=== PATIENT | female | born 1995 | race Caucasian/White ===

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

== ENCOUNTER 2017-09-13 16:37 | Emergency (ER) | payer MEDICAID ==
[~2017-09-13] VITALS: Ht 167.6 cm; Wt 84.0 kg
[~2017-09-13 16:37] MED LIST changes: +PREN-132 PO; -PRENATAL ONE DA1 TAB PO
[2017-09-13 16:47] VITALS: BP 123/87
--- NOTE | 2017-09-13 16:51 | NUR ---
Pt taken to bed 12.
--- NOTE | 2017-09-13 17:03 | NUR ---
WOKE UP THIS MORNING WITH LT FACIAL PAIN 10/10, REPORTS REDNESS AND BURNING SENSATION. MILD SWELLING AND ERYTHEMA NOTED TO LEFT CHEEK BOBE. STATES " I THINK SOMETHING BIT ME" TETANUS LESS THAN 5 YEARS. RESP EVEN AND UNLABORED, IN NAD. AT BEDSIDE. WAITYING FOR ER MD FLEMING. HX; DENIES RX; DENIES
--- NOTE | 2017-09-13 17:16 | NUR ---
DR SANDERS AT BEDSIDE FOR EXAM.
--- NOTE | 2017-09-13 17:38 | NUR ---
Patient discharged with v/s stable. Written and verbal after care instructions given and explained. Patient alert, oriented and verbalized understanding of instructions. Ambulatory with steady gait. All questions addressed prior to discharge. ID band removed. Patient advised to follow up with PMD. Rx of NAPROXYN, KEFLEX given. Patient educated on indication of medication including possible reaction and side effects. Opportunity to ask questions provided and answered.
== END 2017-09-13 17:38 | disposition home or self-care (01) ==
LOC: MED 16:37
DX: L03.313 Cellulitis of chest wall (principal); Z79.899 Other long term (current) drug therapy
CPT/HCPCS: 99283

== ENCOUNTER 2019-04-15 12:37 | Emergency (ER) | payer MEDICAID ==
[~2019-04-15] VITALS: Ht 163.8 cm; Wt 82.6 kg
[2019-04-15 12:46] VITALS: BP 122/90
--- NOTE | 2019-04-15 12:49 | NUR ---
PT TO BED 8 WITH STEADY GAIT
--- NOTE | 2019-04-15 12:52 | NUR ---
R FACIAL PAIN X 3 DAYS. DENIES INJURY OR TRUAMA. PAIN 10/10. SWELLING UNDER PTS R EYE, NO BRUISING. NO FACIAL DROOP NOTED. FACIAL SYMMETRY. PATIENT ADDS DIFFICULTY WITH VISION DUE TO SWELLING. VSS. AA0X4. BED IS DOWN, LOCKED, BED RAIL X 1, ERMD TO SEE PT. PMH- DENIES RX-DENIES
[2019-04-15] MEDS ORDERED: AMPICILLIN/SULBACTAM 3 GM in NACL 0.9% 100 ML IV ONE (13:05)
[2019-04-15] MEDS ORDERED: KETOROLAC 30 MG/ML VIAL IVP ONE (13:05)
[2019-04-15] MEDS ORDERED: AMPICILLIN/SULBACTAM 3 GM VIAL ONE (13:31)
--- NOTE | 2019-04-15 14:08 | NUR ---
PT RESTING IN BED. FAMILY MEMBER AT BEDSIDE.
[2019-04-15 14:42] VITALS: BP 125/78
--- NOTE | 2019-04-15 14:42 | NUR ---
Patient discharged with v/s stable. Written and verbal after care instructions given and explained. Patient alert, oriented and verbalized understanding of instructions. Ambulatory with steady gait. All questions addressed prior to discharge. ID band removed. Patient advised to follow up with PMD. Rx of KEFLEX AND NAPROSYN given. Patient educated on indication of medication including possible reaction and side effects. Opportunity to ask questions provided and answered.
--- NOTE | 2019-04-15 14:45 | NUR ---
PT DISCARGED BY DR ESPINAL
== END 2019-04-15 14:45 | disposition home or self-care (01) ==
LOC: MED 12:37
DX: L03.211 Cellulitis of face (principal); Z79.899 Other long term (current) drug therapy
CPT/HCPCS: 96365; 96375; 99283; J0295; J1885

== ENCOUNTER 2021-01-26 12:33 | Emergency (ER) | payer MEDICAID ==
[~2021-01-26] VITALS: Ht 165.1 cm; Wt 86.2 kg
[2021-01-26 12:38] VITALS: BP 142/83
--- NOTE | 2021-01-26 12:54 | NUR ---
25 Y/O FEMALE C/O RIGHT BREAST PAIN X 1 MONTH. PT STATES 10/10 STABBING PAIN WITH RADIATING TO THE LEFT BREAST. HAS A BIOPSY TO BE DONE IN 2 MONTHS. REFERRED FROM CLINIC FOR HIGH WBCs. MEDHX: R BREAST MASS nka
--- NOTE | 2021-01-26 13:03 | NUR ---
DR COLUNGA AT BEDSIDE EXAMINING PT
--- NOTE | 2021-01-26 14:00 | NUR ---
LAB AT BEDSIDE
[2021-01-26 14:22] LABS: BASOPHILS # (AUTO) 0.1 K/uL (0.00-0.22); BASOPHILS % (AUTO) 0.4 % (0.0-2.0); EOSINOPHILS # (AUTO) 0.1 K/uL (0-0.4); EOSINOPHILS % (AUTO) 0.5 % (0.0-4.0); HEMATOCRIT 38.6 % (36-48); HEMOGLOBIN 12.2 g/dL (12.0-16.0); LYMPHOCYTES # (AUTO) 2.8 K/uL (2.5-16.5); MEAN CORPUSCULAR HEMOGLOBIN 25 pg (27-31); MEAN CORPUSCULAR HGB CONC 32 g/dL (33-37); MEAN CORPUSCULAR VOLUME 80.2 fL (80-94); MONOCYTES # (AUTO) 0.8 K/uL (0.8-1.0); NEUTROPHILS # (AUTO) 9.7 K/uL (1.8-7.7); NEUTROPHILS % (AUTO) 72.1 % (42.2-75.2); PLATELET COUNT (AUTO) 400 K/uL (140-450); RED BLOOD CELL COUNT(AUTO) 4.81 MIL/uL (4.20-5.40); RED CELL DISTRIBUTION WIDTH 15.9 % (11.6-13.7); WHITE BLOOD COUNT (AUTO) 13.4 K/uL (4.8-10.8)
[2021-01-26 14:35] LABS: ALBUMIN 3.7 g/dL (3.4-5.0); ANION GAP 13.1 (8-16); CARBON DIOXIDE 26.8 mmol/L (21-32); CREATININE 0.7 mg/dL (0.6-1.3); POTASSIUM 3.9 mmol/L (3.5-5.1); TOTAL BILIRUBIN 0.4 mg/dL (0.0-1.0)
[2021-01-26 14:38] LABS: BILIRUBIN,URINE NEGATIVE (NEGATIVE); BLOOD, URINE 1+ (NEGATIVE); COLOR,URINE YELLOW (YELLOW); LEUKOCYTE ESTERASE ,URINE 1+ (NEGATIVE); NITRITE, URINE NEGATIVE (NEGATIVE); PH,URINE 5.5 (5.0-9.0); UGLUCOSE NEGATIVE (NEGATIVE)
[2021-01-26 14:52] LABS: APPEARANCE,URINE HAZY (CLEAR)
[2021-01-26 14:55] LABS: RBC,URINE 0-5 /HPF (0-5); WBC,URINE 0-5 /HPF (0-5)
[2021-01-26] MEDS ORDERED: CEPH-588 PO (15:20)
[2021-01-26 15:40] VITALS: BP 142/83
[2021-01-27 09:07] LABS: ANTI DOUBLE STRANDED DNA AB 1 IU/mL (0-9); ANTI-NUCLEAR ANTIBODY,DIRECT Negative (Negative)
== END 2021-01-26 15:40 | disposition home or self-care (01) ==
LOC: MED 12:33
DX: N64.9 Disorder of breast, unspecified (principal); Z79.899 Other long term (current) drug therapy
CPT/HCPCS: 36415; 80053; 81001; 81025; 84702; 85025; 85613; 86038; 87086; 99284

== ENCOUNTER 2022-12-24 11:13 | Emergency (ER) | payer MEDICAID ==
[~2022-12-24] VITALS: Ht 165.1 cm; Wt 92.6 kg
[~2022-12-24 11:13] MED LIST changes: +CEPH-588 PO
[2022-12-24 11:25] VITALS: BP 120/73
--- NOTE | 2022-12-24 11:32 | NUR ---
PATIENT AMBULATED TO BED 9
--- NOTE | 2022-12-24 11:53 | NUR ---
ASSUMED PATIENT CARE, NURSING ASSESSMENT COMPLETED.
--- NOTE | 2022-12-24 12:16 | NUR ---
DR NIETO AT BEDSIDE, MSE COMPLETED CHAPERONED BY FEMALE STAFF.
--- NOTE | 2022-12-24 12:25 | NUR ---
Female Geology Professor accompanied female patient for Breast Exam.
[2022-12-24 13:14] LABS: BASOPHILS # (AUTO) 0.1 K/uL (0.00-0.22); BASOPHILS % (AUTO) 0.4 % (0.0-2.0); EOSINOPHILS # (AUTO) 0.2 K/uL (0-0.4); EOSINOPHILS % (AUTO) 1.1 % (0.0-4.0); HEMATOCRIT 35.9 % (36-48); HEMOGLOBIN 11.5 g/dL (12.0-16.0); LYMPHOCYTES # (AUTO) 3.3 K/uL (2.5-16.5); LYMPHOCYTES % (AUTO) 24.5 % (20.5-51.1); MEAN CORPUSCULAR HEMOGLOBIN 25 pg (27-31); MEAN CORPUSCULAR HGB CONC 32 g/dL (33-37); MEAN CORPUSCULAR VOLUME 77.4 fL (80-94); MONOCYTES # (AUTO) 0.9 K/uL (0.8-1.0); MONOCYTES % (AUTO) 6.9 % (1.7-9.3); NEUTROPHILS # (AUTO) 9.2 K/uL (1.8-7.7); NEUTROPHILS % (AUTO) 67.1 % (42.2-75.2); PLATELET COUNT (AUTO) 374 K/uL (140-450); RED BLOOD CELL COUNT(AUTO) 4.63 MIL/uL (4.20-5.40); RED CELL DISTRIBUTION WIDTH 16.5 % (11.6-13.7); WHITE BLOOD COUNT (AUTO) 13.7 K/uL (4.8-10.8)
[2022-12-24 13:24] LABS: ANION GAP 11.3 (8-16); CARBON DIOXIDE 27.9 mmol/L (21-32); CREATININE 0.6 mg/dL (0.6-1.3); POTASSIUM 4.2 mmol/L (3.5-5.1)
--- NOTE | 2022-12-24 13:45 | NUR ---
Patient discharged with v/s stable. Written and verbal after care instructions given and explained. Patient verbalized understanding. Ambulatory with steady gait. All questions addressed prior to discharge. Advised to follow up with PMD.
== END 2022-12-24 13:44 | disposition home or self-care (01) ==
LOC: MED 11:13
DX: N64.4 Mastodynia (principal); Z79.899 Other long term (current) drug therapy; Z98.890 Other specified postprocedural states
CPT/HCPCS: 36415; 80048; 84703; 85025; 99283